=== PATIENT | female | born 1950 | race American Indian/Alaskan Native ===

== ENCOUNTER 2017-04-03 08:24 | Outpatient (CLI) | payer MEDICARE, OTHER ==
--- NOTE | 2017-04-03 09:12 | Mammography Report ---
BILATERAL MAMMOGRAM: FINDINGS: The breast tissue is heterogeneously dense, which could obscure detection of small masses (approximately 50%-75% glandular). No mass, distortion, suspicious calcification, or skin change is seen. No significant change when compared to prior exam in January 2016. CAD was utilized. IMPRESSION: Negative mammogram. There is no mammographic evidence of malignancy. RECOMMENDATION: Follow-up per ACS guidelines. BI-RADS CATEGORY: 1 = Negative ACR BI-RADS MAMMOGRAPHIC CODES: 0 = Needs additional imaging evaluation; 1 = Negative; 2 = Benign; 3 = Probably benign; 4 = Suspicious; 5 = Malignant; 6 = Known biopsy-proven malignancy COMMENT: 1. Dense breast tissue, i.e., adenosis, fibrocystic changes, etc., may obscure an underlying neoplasm. 2. Approximately 10% of cancers are not detected with mammography. 3. A negative mammography report should not delay biopsy if a clinically suspicious mass is present. COMMENT: Patient follow-up letters are generated in [employer].
== END 2017-04-03 08:25 | disposition home or self-care (01) ==
LOC: MAMMO 08:24
PROVIDERS: ATTEND Family Medicine
DX: Z12.31 Encounter for screening mammogram for malignant neoplasm of breast (principal); I10 Essential (primary) hypertension; I25.10 Atherosclerotic heart disease of native coronary artery without angina pectoris; E78.5 Hyperlipidemia, unspecified; Z87.891 Personal history of nicotine dependence
CPT/HCPCS: 77067; G0202

== ENCOUNTER 2017-07-20 07:27 | Day surgery (SDC) | payer MEDICARE, OTHER ==
[~2017-07-20 07:27] MED LIST: ANCEF/STERILE WATER 2 GM/20 ML IV NR
[2017-07-20] MEDS ORDERED: DIPRIVAN 10 MG/ML IV ONE (07:59)
[2017-07-20] MEDS ORDERED: DILAUDID ONE (07:59)
[2017-07-20] MEDS ORDERED: DECADRON ONE (08:03)
[2017-07-20] MEDS ORDERED: ZOFRAN ONE ×2 (08:03→13:36)
[2017-07-20] MEDS ORDERED: ZEMURON IV ONE (08:03)
[2017-07-20] MEDS ORDERED: XYLOCAINE MPF 2% ONE ×2 (08:03→14:19)
[2017-07-20] MEDS ORDERED: NACL BACTERIOSTATIC INFILTRATI ONE (08:29)
--- NOTE | 2017-07-20 08:30 | Anesthesia Day of Surgery ---
Anesthesia Day of Surgery - Day of Surgery Patient Examined: Yes Patient H&P Reviewed: Yes Patient is NPO: Yes Beta Blockers: Yes Cardiac Clearance: Yes
--- NOTE | 2017-07-20 08:30 | Anesthesia Consultation ---
Anesthesia Consult and Med Hx Date of service: 07/20/17 - Airway Anesthetic Teeth Evaluation: Dentures, Partials ROM Head & Neck: Inadequate Mental/Hyoid Distance: Adequate Mallampati Class: Class II Intubation Access Assessment: Probably Good - Pulmonary Exam CTA: Yes - Cardiac Exam Cardiac Exam: RRR - Pre-Operative Health Status ASA Pre-Surgery Classification: ASA3 - Pre-Anesthesia Comment Pre-Anesthesia Comments: mild decrease neck extension - Pulmonary Hx Smoking: Yes (STOPPED 1979) Hx Sleep Apnea: Yes (DX SLEEP APNEA WITH CPAP USE.) - Cardiovascular System Hx Hypertension: Yes (X 40 YRS) Hx Coronary Artery Disease: Yes (hx ND with cardiac stent x3) Hx Heart Attack/AMI: No Hx Angina: No (none presently) Hx Percutaneous Transluminal Coronary Angioplasty (PTCA): Yes - Central Nervous System Hx Back Pain: Yes (NECK PAIN DUE TO SHOULDER ISSUES) Hx Psychiatric Problems: No - Gastrointestinal Hx Gastroesophageal Reflux Disease: No - Endocrine Hx Renal Disease: No Hx Insulin Dependent Diabetes: No - Other Systems Hx Substance Use: No Hx Cancer: No
[2017-07-20] MEDS ORDERED: DILAUDID IV PRN (08:32)
[2017-07-20] MEDS ORDERED: MARCAINE 0.5% 30 ML INFILTRATI ONE (08:40)
[2017-07-20] MEDS ORDERED: SUBLIMAZE ONE (08:52)
[2017-07-20] MEDS ORDERED: ZOFRAN IV NR (09:00)
[2017-07-20] MEDS ORDERED: PERCOCET 5/325 PO PRN (09:00)
[2017-07-20] MEDS ORDERED: ZOFRAN IV PRN (09:00)
[2017-07-20] MEDS ORDERED: LACTATED RINGERS 1,000 ML IV SCH (09:00)
[2017-07-20] MEDS ORDERED: PEPCID IV NR (09:00)
[2017-07-20] MEDS: VERSED IV NR ×2 (09:05→13:57)
[2017-07-20 09:06] LABS: INR 1.02 (0.87-1.13)
[2017-07-20] MEDS ORDERED: DEPO-MEDROL ONE (09:46)
[2017-07-20] MEDS ORDERED: MARCAINE 0.25% INFILTRATI ONE (09:47)
[2017-07-20] MEDS ORDERED: ADRENALIN ONE (09:47)
[2017-07-20] MEDS ORDERED: NACL 0.9% IR ONE ×2 (10:07)
[2017-07-20] MEDS ORDERED: DEPO-MEDROL INTRA-ARTI ONE (10:07)
[2017-07-20] MEDS ORDERED: ADRENALIN IV ONE (10:07)
[2017-07-20] MEDS ORDERED: NACL 0.9% 1000 ML 1,000 ML ONE (10:33)
--- NOTE | 2017-07-20 16:11 | Procedure Note ---
Date of procedure: 07/20/17 Pre-op diagnosis: right shoulder pain Post-op diagnosis: same (80% partial-thickness tear right rotator cuff) Procedure: Arthroscopy right shoulder with subacromial decompression and repair of rotator cuff tendon with suture anchors The patient was brought to the OR after being given a scalene nerve block for postop pain management Was placed on the OR table in the supine position following induction and intubation by anesthesia the patient was placed in the left lateral decubitus position using a beanbag next the right shoulder was prepped and draped in the usual sterile manner. A timeout procedure was done to identify the patient and the correct operative site, next routine arthroscopic portals were made in the subacromial space following introduction of the arthroscope and insufflation of the subacromial space with normal saline solution examination revealed these findings the patient was noted to have significant bony impingement from the acromioclavicular joint as well as a 80% partial-thickness tear involving the supraspinatus tendon. Using a combination of the arthroscopic shaver and tissue ablator the soft tissues were debrided from the subacromial bursa as well as the overlying acromioclavicular joint care was taken to remove as much bony impingement as as we could to increase the space in the subacromial and the subacromial region C partial-thickness tear was converted to a full- thickness tear using the tissue ablator care was taken to roughen up the anatomic footprint along the greater tuberosity. Following this using the scorpion suture passer the fiber tape was passed through the supraspinatus tendon to stand was brought to the anatomic footprint and using the suture anchor device via tendon was secured in the bone with the piece worker under direct arthroscopic visualization the tendon was then tightened into position next the sutures were cut the shoulder was taken through a range of motion and the repair appeared stable next the subacromial bursa was irrigated copiously with saline solution this was followed by closure of the stab wounds Marcaine was injected along with 40 mg of Depo-Medrol routine postoperative dressings were applied the patient tolerated the procedure there were no complications she was taken to postanesthesia recovery in stable condition Anesthesia: RADHA, debora Surgeon: MILDRED CA Pipe Fitter Soft Copper: REKHA PATEL Estimated blood loss: 50-100ml Pathology: none Condition: stable Disposition: PACU
[2017-07-20 16:14] VITALS: BP 152/67
--- NOTE | 2017-07-20 16:37 | Post Anesthesia Evaluation ---
- Post Anesthesia Evaluation Patient Participated: Yes Airway Patent: Yes Stable Respiratory Function: Yes Nausea/Vomiting: No Temp > 96.8F: Yes Pain Manageable: Yes Adequeate Hydration: Yes Anesthesia Complications: No Patient on Ventilator: No Other Comments: Patient having some SOB after procedure. Oxygen sats > 92% on room air. Had a interscalene block. Reassured patient that the nerve block can cause difficulty in breathing but will go away when it starts to wear off. Gave patient the option to stay overnight but she declined along with .
== END 2017-07-20 07:28 | disposition home or self-care (01) ==
LOC: OR 07:27
PROVIDERS: ATTEND Orthopaedic Surgery
DX: S46.011A Strain of muscle(s) and tendon(s) of the rotator cuff of right shoulder, initial encounter (principal); G47.30 Sleep apnea, unspecified; I10 Essential (primary) hypertension; I25.10 Atherosclerotic heart disease of native coronary artery without angina pectoris; I25.2 Old myocardial infarction; E78.00 Pure hypercholesterolemia, unspecified; Z96.651 Presence of right artificial knee joint; Z95.828 Presence of other vascular implants and grafts; Z87.891 Personal history of nicotine dependence; Z99.89 Dependence on other enabling machines and devices; Z98.61 Coronary angioplasty status; Z88.8 Allergy status to other drugs, medicaments and biological substances; X58.XXXA Exposure to other specified factors, initial encounter; Y93.89 Activity, other specified; Y92.89 Other specified places as the place of occurrence of the external cause
CPT/HCPCS: 29826; 29827; 36415; 82962; 85610; 85730; A4217; C1713; J0171; J0690; J1030; J1100; J1170; J2250; J2405; J2704; J3010; J7030; J7120

== ENCOUNTER 2018-01-01 15:32 | Emergency (ER) | payer MEDICARE, OTHER ==
[2018-01-01 16:26] LABS: Basophils # (Auto) 0.1 K/mm3 (0.0-0.1); Basophils % (Auto) 1.2 % (0.0-1.8); Eosinophils # (Auto) 0.2 K/mm3 (0.0-0.4); Eosinophils % (Auto) 2.7 % (0.0-4.3); Hematocrit 39.4 % (30.3-42.9); Hemoglobin 12.6 gm/dl (10.1-14.3); Lymphocytes # (Auto) 1.8 K/mm3 (1.2-5.4); Lymphocytes % (Auto) 26.4 % (13.4-35.0); Mean Corpuscular HGB Conc 32 % (30-34); Mean Corpuscular Volume 76 fl (79-97); Monocytes # (Auto) 0.5 K/mm3 (0.0-0.8); Monocytes % (Auto) 6.7 % (0.0-7.3); Platelet Count 332 K/mm3 (140-440); Red Blood Count 5.16 M/mm3 (3.65-5.03); Red Cell Distribution Width 16.7 % (13.2-15.2)
[2018-01-01 16:34] LABS: INR 0.93 (0.87-1.13)
[2018-01-01 16:35] LABS: Mean Corpuscular Hemoglobin 24 pg (28-32); Partial Thromboplastin Time 35.2 Sec. (24.2-36.6)
[2018-01-01 16:42] LABS: BUN/Creatinine Ratio 27; Blood Urea Nitrogen 16 mg/dL (7-17); Calcium 9.3 mg/dL (8.4-10.2); Hemolysis Index 15
--- NOTE | 2018-01-01 18:03 | Cat Scan Report ---
FINAL REPORT EXAM: CT HEAD/BRAIN WO CON HISTORY: neuro deficits < 6hrs or sx present upon awakening TECHNIQUE: Noncontrast CT axial images of the brain. PRIORS: None. FINDINGS: No parenchymal mass, mass effect, hemorrhage, midline shift or hydrocephalus. No evidence of acute cortical infarct. No abnormal, extra-axial fluid or air collection. Very mild, patchy low density in the periventricular and subcortical white matter is nonspecific, but may relate to chronic small vessel ischemic change. Probable old lacunar infarct changes in the right basal ganglia. Osseous calvarium grossly intact. IMPRESSION: 1. Chronic ischemic changes suspected. Please note that MRI is a far more sensitive modality in the evaluation of acute cerebral ischemia, and followup may be warranted. 2. No other acute intracranial findings.
--- NOTE | 2018-01-01 22:35 | Emergency Department Report ---
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 Past medical history includes hypertension and coronary artery disease. She presents to the ER with a complaint of bilateral facial numbness. It started at 12:00. It lasted for a few hours. It is now resolved. It is painless. It does not radiate anywhere. He does not have exacerbating or relieving factors. The patient also complained of left arm cramping, starting from the mid forearm , going to the elbow, and ending in the mid bicep. The patient specifically denies complete left arm numbness, and also denies left arm heaviness. This has also resolved. The patient denies headache, neck pain, chest pain, abdominal pain, shortness of breath, cough, urinary symptoms. Location: other Presenting Symptoms: Absent: Weak/Paralyzed One Side, Sudden, Severe Headache, Blurred/Loss of Vision, Facial Droop/Numbness, Unable to Speak Clearly, Altered Mental Status History of same: No Place: work Severity: mild Quality: numb Improves With: none Worsens With: none On Anticoagulants: Yes Associated Symptoms: denies: confusion, chest pain, cough, diaphoresis, fever/ chills, headaches, loss of appetite, malise, nausea/vomiting, vertigo, seizures , shortness of breath, syncope, weakness - Related Data Home Medications: Home Medications Medication Instructions Recorded Confirmed Last Taken Atorvastatin (Nf) [Lipitor (Nf)] 20 mg PO DAILY 12/03/13 07/20/17 07/19/17 Cholecalciferol (Vitamin D3) 1 each PO DAILY 12/03/13 07/17/17 02/04/15 08:00 [Vitamin D3] Multivitamin/Iron/Folic Acid 1 each PO DAILY 12/03/13 07/17/17 02/04/15 08:00 [Multi-Day Plus Iron Tablet] Flaxseed [Flaxseed Oil] 1,000 mg PO QDAY 01/29/15 07/17/17 02/04/15 09:00 Glucosam/Chondr/Collagn/Hyalur 1 each PO QDAY 01/29/15 07/17/17 02/04/15 09:00 [Glucosamine & Chondroitin Cap] Metoprolol Xl [Metoprolol 50 mg PO BID 01/29/15 07/20/17 07/20/17 SUCCINATE ER TAB] NIFEdipine [NIFEdipine ER] 60 mg PO QDAY 01/29/15 07/20/17 07/20/17 Vitamin B Complex Vit C No.4 150 mg PO QDAY 01/29/15 07/17/17 02/04/15 08:00 [Super B Complex] L. Acidophilus/Pectin, Ho[place] 1 each PO DAILY 07/17/17 07/17/17 Unknown [Acidophilus Probiotic Capsule] Multivit-Min/FA/Lycopen/Lutein 1 each PO DAILY 07/17/17 07/17/17 Unknown [Centrum Silver Tablet] Prasugrel HCl [Effient] 10 mg PO DAILY 07/17/17 07/20/17 07/17/17 Propylene Glycol [Systane Balance] 1 drop OP DAILY 07/17/17 07/17/17 Unknown Calhan Oil/[place]-3 Fatty Acids 1 each PO DAILY 07/17/17 07/17/17 Unknown [Calhan Oil 1,000 mg Softgel] Previous Rx's Medication Instructions Recorded Last Taken Type Aspirin EC [Aspirin Enteric Coated 81 mg PO QDAY #30 tablet. 12/03/13 Rx TAB] oxyCODONE [Roxicodone TAB] 5 mg PO Q6HR PRN #30 tablet 07/20/17 Unknown Rx Allergies/Adverse Reactions: Allergies Allergy/AdvReac Type Severity Reaction Status Date / Time adhesive AdvReac Severe STEWART SKIN Verified 12/03/13 07:01 ED Review of Systems ROS: Stated complaint: TINGLING IN FACE Other details as noted in HPI Comment: All other systems reviewed and negative ED Past Medical Hx - Past Medical History Hx Hypertension: Yes (X 40 YRS) Hx Heart Attack/AMI: No Hx Diabetes: Yes ("BOARDERLINE" NO MEDS) Hx GERD: Yes (ON MEDS FOR AWHILE , RESOLVED NOW) Hx Renal Disease: No - Surgical History Hx Coronary Stent: Yes (X 3( )) - Social History Smoking Status: Former Smoker Substance Use Type: None - Medications Home Medications: Home Medications Medication Instructions Recorded Confirmed Last Taken Type Aspirin EC [Aspirin Enteric Coated 81 mg PO QDAY #30 tablet. 12/03/1307/16/17 Rx TAB] Atorvastatin (Nf) [Lipitor (Nf)] 20 mg PO DAILY 12/03/13 07/20/17 07/19/17 History Cholecalciferol (Vitamin D3) 1 each PO DAILY 12/03/13 07/17/17 02/04/15 08:00 History [Vitamin D3] Multivitamin/Iron/Folic Acid 1 each PO DAILY 12/03/13 07/17/17 02/04/15 08:00 History [Multi-Day Plus Iron Tablet] Flaxseed [Flaxseed Oil] 1,000 mg PO QDAY 01/29/15 07/17/17 02/04/15 09:00 History Glucosam/Chondr/Collagn/Hyalur 1 each PO QDAY 01/29/15 07/17/17 02/04/15 09:00 History [Glucosamine & Chondroitin Cap] Metoprolol Xl [Metoprolol 50 mg PO BID 01/29/15 07/20/17 07/20/17 History SUCCINATE ER TAB] NIFEdipine [NIFEdipine ER] 60 mg PO QDAY 01/29/15 07/20/17 07/20/17 History Vitamin B Complex Vit C No.4 150 mg PO QDAY 01/29/15 07/17/17 02/04/15 08:00 History [Super B Complex] L. Acidophilus/Pectin, [place] 1 each PO DAILY 07/17/17 07/17/17 Unknown History [Acidophilus Probiotic Capsule] Multivit-Min/FA/Lycopen/Lutein 1 each PO DAILY 07/17/17 07/17/17 Unknown History [Centrum Silver Tablet] Prasugrel HCl [Effient] 10 mg PO DAILY 07/17/17 07/20/17 07/17/17 History Propylene Glycol [Systane Balance] 1 drop OP DAILY 07/17/17 07/17/17 Unknown History Calhan Oil/[place]-3 Fatty Acids 1 each PO DAILY 07/17/17 07/17/17 Unknown History [Calhan Oil 1,000 mg Softgel] oxyCODONE [Roxicodone TAB] 5 mg PO Q6HR PRN #30 tablet 07/20/17 Unknown Rx ED Neuro Physical Exam - General Limitations: No Limitations General appearance: alert, in no apparent distress Suspected Stroke: No - Head Head exam: Present: atraumatic, normocephalic - Eye Eye exam: Present: normal appearance, PERRL, EOMI, other (visual acuity intact to finger counting, color perception, reading at a close distance). Absent: nystagmus - ENT ENT exam: Present: normal exam, normal orophraynx, mucous membranes moist, normal external ear exam - Neck Neck exam: Present: normal inspection, full ROM - Respiratory Respiratory exam: Present: normal lung sounds bilaterally. Absent: respiratory distress - Cardiovascular Cardiovascular Exam: Present: regular rate, normal rhythm, normal heart sounds. Absent: systolic murmur, diastolic murmur, rubs, gallop - GI/Abdominal GI/Abdominal exam: Present: soft, normal bowel sounds. Absent: distended, tenderness, guarding, rebound, rigid, pulsatile mass - Extremities Exam Extremities exam: Present: normal inspection, full ROM, normal capillary refill. Absent: tenderness, joint swelling, calf tenderness - Back Exam Back exam: Present: normal inspection, full ROM. Absent: tenderness, CVA tenderness (R), paraspinal tenderness, vertebral tenderness - Neurological Exam Neurological exam: Present: alert, oriented X3, CN II-XII intact, normal gait, other (Extraocular movements intact. Tongue midline. No facial droop. Facial sensation intact to light touch in the V1, V2, V3 distribution bilaterally. 5 and 5 strength in 4 extremities.. Sensation is intact to light touch in 4 extremities.). Absent: motor sensory deficit - NIHSS Assessment Interval: Baseline 1a. Level of Consciousness: alert 1b. LOC Questions: answers correctly 1c. LOC Commands: performs tasks correctly 2. Best Gaze: normal 3. Visual: no visual loss 4. Facial Palsy: normal symmetrical movement 5b. Motor Arm Right: no drift 5a. Motor Arm Left: no drift 6a. Motor Leg Left: no drift 6b. Motor Leg Right: no drift 7. Limb Ataxia: absent 8. Sensory: normal 9. Best Language: no aphasia 10. Dysarthria: normal 11. Extinction/Inattention: no abnormality Total Score: 0 Stroke Severity: No Stroke Symptoms - Psychiatric Psychiatric exam: Present: normal affect, normal mood - Skin Skin exam: Present: warm, dry, intact, normal color. Absent: rash ED Course Vital Signs 01/01/18 01/01/18 15:39 22:27 Temperature 98 F 98.1 F Pulse Rate 94 H 82 Respiratory 16 12 Rate Blood Pressure 191/80 Blood Pressure 155/77 [Right] O2 Sat by Pulse 99 100 Oximetry - Reevaluation(s) Reevaluation #1: 01/01/18 22:33 Cranial nerves within normal limits as directed, with the exception of decreased hearing in the left ear which is chronic as per patient. Differential diagnosis, including not limited to: Multiple sclerosis, peripheral neuropathy, panic attack, anxiety, conversion, electrolyte derangement Assessment and plan: 67-year-old female with complaint of painless bilateral facial numbness, and left mid arm cramping. GCS of 15, NIH score of 0, symptoms not anatomically consistent or suggestive of stroke or transient ischemic attack. Laboratory studies unremarkable, not having chest pain, EKG unremarkable, vital signs appreciated, patient is counseled to continue outpatient medications, and to follow up with outpatient primary care and/or neurology. Elevated blood pressure is appreciated, please see the [employer] clinical policy on asymptomatic elevated blood pressure/hypertension. Patient is suitable to follow up with outpatient primary care doctor/urology specialist for her nonspecific symptoms. 01/01/18 22:40 - Lab Data Result diagrams: 01/01/18 15:58 01/01/18 15:58 Lab Results 01/01/18 01/01/18 01/01/18 Range/Units 15:56 15:58 15:58 WBC 6.8 (4.5-11.0) K/mm3 RBC 5.16 H (3.65-5.03) M/mm3 Hgb 12.6 (10.1-14.3) gm/dl Hct 39.4 (30.3-42.9) % MCV 76 L (79-97) fl MCH 24 L (28-32) pg MCHC 32 (30-34) % RDW 16.7 H (13.2-15.2) % Plt Count 332 (140-440) K/mm3 Lymph % (Auto) 26.4 (13.4-35.0) % [place] % (Auto) 6.7 (0.0-7.3) % Eos % (Auto) 2.7 (0.0-4.3) % Baso % (Auto) 1.2 (0.0-1.8) % Lymph # 1.8 (1.2-5.4) K/mm3 [place] # 0.5 (0.0-0.8) K/mm3 Eos # 0.2 (0.0-0.4) K/mm3 Baso # 0.1 (0.0-0.1) K/mm3 Seg Neutrophils % 63.0 (40.0-70.0) % Seg Neutrophils # 4.3 (1.8-7.7) K/mm3 PT 12.9 (12.2-14.9) Sec. INR 0.93 (0.87-1.13) APTT 35.2 (24.2-36.6) Sec. Thrombin Time (15.1-19.6) Sec. Sodium (137-145) mmol/L Potassium (3.6-5.0) mmol/L Chloride (98-107) mmol/L Carbon Dioxide (22-30) mmol/L Anion Gap mmol/L BUN (7-17) mg/dL Creatinine (0.7-1.2) mg/dL Estimated GFR ml/min BUN/Creatinine Ratio % Glucose (65-100) mg/dL POC Glucose 135 H (70-105) Calcium (8.4-10.2) mg/dL Troponin T (0.00-0.029) ng/mL 01/01/18 01/01/18 Range/Units 15:58 15:58 WBC (4.5-11.0) K/mm3 RBC (3.65-5.03) M/mm3 Hgb (10.1-14.3) gm/dl Hct (30.3-42.9) % MCV (79-97) fl MCH (28-32) pg MCHC (30-34) % RDW (13.2-15.2) % Plt Count (140-440) K/mm3 Lymph % (Auto) (13.4-35.0) % [place] % (Auto) (0.0-7.3) % Eos % (Auto) (0.0-4.3) % Baso % (Auto) (0.0-1.8) % Lymph # (1.2-5.4) K/mm3 [place] # (0.0-0.8) K/mm3 Eos # (0.0-0.4) K/mm3 Baso # (0.0-0.1) K/mm3 Seg Neutrophils % (40.0-70.0) % Seg Neutrophils # (1.8-7.7) K/mm3 PT (12.2-14.9) Sec. INR (0.87-1.13) APTT (24.2-36.6) Sec. Thrombin Time 15.8 (15.1-19.6) Sec. Sodium 139 (137-145) mmol/L Potassium 3.7 (3.6-5.0) mmol/L Chloride 99.3 (98-107) mmol/L Carbon Dioxide 25 (22-30) mmol/L Anion Gap 18 mmol/L BUN 16 (7-17) mg/dL Creatinine 0.6 L (0.7-1.2) mg/dL Estimated GFR > 60 ml/min BUN/Creatinine Ratio 27 % Glucose 139 H (65-100) mg/dL POC Glucose (70-105) Calcium 9.3 (8.4-10.2) mg/dL Troponin T < 0.010 (0.00-0.029) ng/mL - EKG Data -: EKG Interpreted by [facility] EKG shows normal: sinus rhythm, axis, intervals, QRS complexes, ST-T waves Rate: normal Interpretation: normal EKG - Radiology Data Radiology results: report reviewed, image reviewed Print Report Referring Physician: DORA MOSHER Patient Name: TRINITY LIMA Date of : 1950 Sex: Female Report Date: 2018-01-01 Report Status: [place] [address] Cat Scan Report Signed Patient: TRINITY LIMA MR#: [id number] : 1950 Acct:[id number] Age/Sex: 67 / F ADM Date: 01/01/18 Loc: ED Attending Dr: Ordering Physician: DORA MOSHER MD Date of Service: 01/01/18 Procedure(s): CT head/brain wo con Accession Number(s): [id number] cc: DORA MOSHER MD FINAL REPORT EXAM: CT HEAD/BRAIN WO CON HISTORY: neuro deficits lt; 6hrs or sx present upon awakening TECHNIQUE: Noncontrast CT axial images of the brain. PRIORS: None. FINDINGS: No parenchymal mass, mass effect, hemorrhage, midline shift or hydrocephalus. No evidence of acute cortical infarct. No abnormal, extra-axial fluid or air collection. Very mild, patchy low density in the periventricular and subcortical white matter is nonspecific, but may relate to chronic small vessel ischemic change. Probable old lacunar infarct changes in the right basal ganglia. Osseous calvarium grossly intact. IMPRESSION: 1. Chronic ischemic changes suspected. Please note that MRI is a far more sensitive modality in the evaluation of acute cerebral ischemia, and followup may be warranted. 2. No other acute intracranial findings. Transcribed By: [facility] Dictated By: RAY TAYLOR MD Electronically Authenticated By: RAY TAYLOR MD Signed Date/Time: 01/01/18 2364 - Core Measures Measure Exclusions: not indicated - Thrombolytic Inclusion/Exclusion Thrombolytic Contraindications: Rapidily Improving s/s Critical care attestation.: If time is entered above; I have spent that time in minutes in the direct care of this critically ill patient, excluding procedure time. ED Disposition Clinical Impression: Facial numbness Disposition: DC-01 TO HOME OR SELFCARE Is pt being admited?: No Does the pt Need Aspirin: No Condition: Good Instructions: Paresthesia (ED) Additional Instructions: Continue current outpatient medications. Follow-up with her primary care doctor or neurology specialist within the next week. Please note that blood pressure was elevated. This should be followed up as directed. Long-term complications of hypertension and elevated blood pressure include stroke, heart attack, disability, paralysis, loss of quality of life. Return to the ER right away with new pain, worsened pain, migration of pain, fevers, chills, lethargy, irritability, projectile vomiting, change in mental status, confusion, inability to tolerate liquid feeds. Referrals: PRIMARY LARRY, [Primary Care Provider] - 3-5 Days SHU BIRMINGHAM MD [Referring] - 3-5 Days VANDANA ARREOLA MD [Staff Physician] - 3-5 Days MICHELLE JONES MD [Staff Physician] - 3-5 Days
[2018-01-01 23:26] VITALS: BP 151/74
== END 2018-01-01 23:26 | disposition home or self-care (01) ==
LOC: ED 15:32
DX: R20.0 Anesthesia of skin (principal); I10 Essential (primary) hypertension; E11.9 Type 2 diabetes mellitus without complications; K21.9 Gastro-esophageal reflux disease without esophagitis; Z87.891 Personal history of nicotine dependence; Z91.048 Other nonmedicinal substance allergy status
CPT/HCPCS: 36415; 70450; 80048; 82962; 84484; 85025; 85610; 85670; 85730; 93005; 93010; 99284

== ENCOUNTER 2018-02-12 09:39 | Emergency (ER) | payer MEDICARE, OTHER ==
--- NOTE | 2018-02-12 12:53 | Emergency Department Report ---
ED General Adult HPI - General Chief complaint: Extremity Injury, Lower Stated complaint: POSS CLOTS IN LEGS Time Seen by Provider: 02/12/18 12:44 Source: patient Mode of arrival: Ambulatory Limitations: No Limitations - History of Present Illness Initial comments: Patient is 67 years old female with history of coronary artery disease. Patient presented to the ER complaining of bilateral lower extremity swelling, redness and warm and tender to touch. Patient stated that symptoms started after she finished our [employer] shopping. Patient denied any chest pain or shortness of breath. No fever, nausea or vomiting. - Related Data Home Medications Medication Instructions Recorded Confirmed Last Taken Atorvastatin (Nf) [Lipitor (Nf)] 20 mg PO DAILY 12/03/13 07/20/17 07/19/17 Cholecalciferol (Vitamin D3) 1 each PO DAILY 12/03/13 07/17/17 02/04/15 08:00 [Vitamin D3] Multivitamin/Iron/Folic Acid 1 each PO DAILY 12/03/13 07/17/17 02/04/15 08:00 [Multi-Day Plus Iron Tablet] Flaxseed [Flaxseed Oil] 1,000 mg PO QDAY 01/29/15 07/17/17 02/04/15 09:00 Glucosam/Chondr/Collagn/Hyalur 1 each PO QDAY 01/29/15 07/17/17 02/04/15 09:00 [Glucosamine & Chondroitin Cap] Metoprolol Xl [Metoprolol 50 mg PO BID 01/29/15 07/20/17 07/20/17 SUCCINATE ER TAB] NIFEdipine [NIFEdipine ER] 60 mg PO QDAY 01/29/15 07/20/17 07/20/17 Vitamin B Complex Vit C No.4 150 mg PO QDAY 01/29/15 07/17/17 02/04/15 08:00 [Super B Complex] L. Acidophilus/Pectin, [place] 1 each PO DAILY 07/17/17 07/17/17 Unknown [Acidophilus Probiotic Capsule] Multivit-Min/FA/Lycopen/Lutein 1 each PO DAILY 07/17/17 07/17/17 Unknown [Centrum Silver Tablet] Prasugrel HCl [Effient] 10 mg PO DAILY 07/17/17 07/20/17 07/17/17 Propylene Glycol [Systane Balance] 1 drop OP DAILY 07/17/17 07/17/17 Unknown [place] Oil/Aurora-3 Fatty Acids 1 each PO DAILY 07/17/17 07/17/17 Unknown [[place] Oil 1,000 mg Softgel] Previous Rx's Medication Instructions Recorded Last Taken Type Aspirin EC [Aspirin Enteric Coated 81 mg PO QDAY #30 tablet. 12/03/13 Rx TAB] oxyCODONE [Roxicodone TAB] 5 mg PO Q6HR PRN #30 tablet 07/20/17 Unknown Rx Allergies Allergy/AdvReac Type Severity Reaction Status Date / Time adhesive AdvReac Severe STEWART SKIN Verified 12/03/13 07:01 ED Review of Systems ROS: Stated complaint: POSS CLOTS IN LEGS Other details as noted in HPI Comment: All other systems reviewed and negative Constitutional: denies: chills, fever Respiratory: denies: cough, orthopnea, shortness of breath, SOB with exertion, SOB at rest, wheezing Gastrointestinal: denies: abdominal pain, nausea, vomiting, diarrhea, constipation, hematemesis, melena, hematochezia Genitourinary: denies: urgency, dysuria, frequency, hematuria, discharge, abnormal menses, dyspareunia Skin: denies: rash ED Past Medical Hx - Past Medical History Previous Medical History?: Yes Hx Hypertension: Yes (X 40 YRS) Hx Heart Attack/AMI: No Hx Diabetes: Yes ("BOARDERLINE" NO MEDS) Hx GERD: Yes (ON MEDS FOR AWHILE , RESOLVED NOW) Hx Renal Disease: No - Surgical History Past Surgical History?: Yes Hx Coronary Stent: Yes (X 3( )) - Social History Smoking Status: Former Smoker Substance Use Type: Prescribed - Medications Home Medications: Home Medications Medication Instructions Recorded Confirmed Last Taken Type Aspirin EC [Aspirin Enteric Coated 81 mg PO QDAY #30 tablet. 12/03/1307/16/17 Rx TAB] Atorvastatin (Nf) [Lipitor (Nf)] 20 mg PO DAILY 12/03/13 07/20/17 07/19/17 History Cholecalciferol (Vitamin D3) 1 each PO DAILY 12/03/13 07/17/17 02/04/15 08:00 History [Vitamin D3] Multivitamin/Iron/Folic Acid 1 each PO DAILY 12/03/13 07/17/17 02/04/15 08:00 History [Multi-Day Plus Iron Tablet] Flaxseed [Flaxseed Oil] 1,000 mg PO QDAY 01/29/15 07/17/17 02/04/15 09:00 History Glucosam/Chondr/Collagn/Hyalur 1 each PO QDAY 01/29/15 07/17/17 02/04/15 09:00 History [Glucosamine & Chondroitin Cap] Metoprolol Xl [Metoprolol 50 mg PO BID 01/29/15 07/20/17 07/20/17 History SUCCINATE ER TAB] NIFEdipine [NIFEdipine ER] 60 mg PO QDAY 01/29/15 07/20/17 07/20/17 History Vitamin B Complex Vit C No.4 150 mg PO QDAY 01/29/15 07/17/17 02/04/15 08:00 History [Super B Complex] L. Acidophilus/Pectin, [place] 1 each PO DAILY 07/17/17 07/17/17 Unknown History [Acidophilus Probiotic Capsule] Multivit-Min/FA/Lycopen/Lutein 1 each PO DAILY 07/17/17 07/17/17 Unknown History [Centrum Silver Tablet] Prasugrel HCl [Effient] 10 mg PO DAILY 07/17/17 07/20/17 07/17/17 History Propylene Glycol [Systane Balance] 1 drop OP DAILY 07/17/17 07/17/17 Unknown History [place] Oil/Aurora-3 Fatty Acids 1 each PO DAILY 07/17/17 07/17/17 Unknown History [[place] Oil 1,000 mg Softgel] oxyCODONE [Roxicodone TAB] 5 mg PO Q6HR PRN #30 tablet 07/20/17 Unknown Rx ED Physical Exam - General Limitations: No Limitations General appearance: alert, in no apparent distress - Head Head exam: Present: atraumatic, normocephalic, normal inspection - Eye Eye exam: Present: normal appearance - ENT ENT exam: Present: normal exam, normal orophraynx, mucous membranes moist - Neck Neck exam: Present: normal inspection, full ROM. Absent: tenderness, meningismus, lymphadenopathy, thyromegaly - Respiratory Respiratory exam: Present: normal lung sounds bilaterally. Absent: respiratory distress, wheezes, rales, rhonchi, stridor, chest wall tenderness, accessory muscle use, decreased breath sounds, prolonged expiratory - Cardiovascular Cardiovascular Exam: Present: regular rate, normal rhythm, normal heart sounds - GI/Abdominal GI/Abdominal exam: Present: soft, normal bowel sounds. Absent: distended, tenderness, guarding, rebound, rigid, organomegaly, mass, bruit, pulsatile mass , hernia - Extremities Exam Extremities exam: Present: full ROM, tenderness, normal capillary refill, pedal edema, calf tenderness, other (bilateral lower extremity redness, warm and tender to touch.) - Back Exam Back exam: Present: normal inspection, full ROM. Absent: tenderness, CVA tenderness (R), CVA tenderness (L), muscle spasm, paraspinal tenderness, vertebral tenderness - Neurological Exam Neurological exam: Present: alert, oriented X3, CN II-XII intact, normal gait, reflexes normal - Skin Skin exam: Present: warm, intact, erythema ED Course Vital Signs 02/12/18 10:02 Temperature 98.6 F Pulse Rate 78 Respiratory 20 Rate Blood Pressure 114/73 O2 Sat by Pulse 96 Oximetry ED Medical Decision Making - Lab Data Result diagrams: 02/12/18 12:53 02/12/18 12:53 - Radiology Data Radiology results: report reviewed Bilateral lower extremity Doppler is negative for DVTs. - Medical Decision Making Patient workup is negative for infection or DVT. This is most likely venous stasis. I will prescribe the patient hydrocortisone cream. I also advised the patient to follow-up with her primary care physician and to return to the ER if she saw having any shortness of breath or chest pain. Critical care attestation.: If time is entered above; I have spent that time in minutes in the direct care of this critically ill patient, excluding procedure time. ED Disposition Clinical Impression: Venous stasis dermatitis, Swelling of both lower extremities Disposition: - TO HOME OR SELFCARE Is pt being admited?: No Condition: Stable Instructions: Stasis Dermatitis (ED) Referrals: REKHA ALEMAN JR, MD [Primary Care Provider] - 3-5 Days
[2018-02-12 13:18] LABS: Basophils % (Auto) 0.6 % (0.0-1.8); Eosinophils % (Auto) 0.7 % (0.0-4.3); Hematocrit 36.7 % (30.3-42.9); Hemoglobin 11.6 gm/dl (10.1-14.3); Lymphocytes # (Auto) 0.9 K/mm3 (1.2-5.4); Lymphocytes % (Auto) 18.1 % (13.4-35.0); Mean Corpuscular HGB Conc 32 % (30-34); Mean Corpuscular Volume 75 fl (79-97); Monocytes # (Auto) 0.3 K/mm3 (0.0-0.8); Monocytes % (Auto) 6.9 % (0.0-7.3); Platelet Count 308 K/mm3 (140-440); Red Blood Count 4.87 M/mm3 (3.65-5.03); Red Cell Distribution Width 16.3 % (13.2-15.2)
[2018-02-12 13:27] LABS: BUN/Creatinine Ratio 27; Blood Urea Nitrogen 24 mg/dL (7-17); Calcium 8.8 mg/dL (8.4-10.2); Hemolysis Index 8
[2018-02-12 13:33] LABS: INR 0.95 (0.87-1.13); Mean Corpuscular Hemoglobin 24 pg (28-32)
[2018-02-12 13:34] LABS: Partial Thromboplastin Time 36.4 Sec. (24.2-36.6)
[2018-02-12 17:44] VITALS: BP 128/89
== END 2018-02-12 17:01 | disposition home or self-care (01) ==
LOC: ED 09:39
DX: I87.2 Venous insufficiency (chronic) (peripheral) (principal); M79.89 Other specified soft tissue disorders
CPT/HCPCS: 36415; 80048; 85025; 85379; 85610; 85730; 93970

== ENCOUNTER 2018-04-04 08:38 | Outpatient (CLI) | payer MEDICARE, OTHER ==
--- NOTE | 2018-04-04 10:55 | Mammography Report ---
Screening mammogram: Routine views demonstrate a heterogeneously dense symmetrically distributed fibroglandular pattern. In the left CC view there is an area of focal asymmetry that is not identified on prior exams dating back to 2013. The lateral projections remain essentially unchanged. CAD used. Impression: Left asymmetry. Recommendation: Additional compression imaging of the left breast in CC projection. Lateral views and ultrasound if needed. BI-RADS CATEGORY: 0 = Needs additional imaging evaluation ACR BI-RADS MAMMOGRAPHIC CODES: 0 = Needs additional imaging evaluation; 1 = Negative; 2 = Benign; 3 = Probably benign; 4 = Suspicious; 5 = Malignant; 6 = Known biopsy-proven malignancy COMMENT: 1. Dense breast tissue, i.e., adenosis, fibrocystic changes, etc., may obscure an underlying neoplasm. 2. Approximately 10% of cancers are not detected with mammography. 3. A negative mammography report should not delay biopsy if a clinically suspicious mass is present.
--- NOTE | 2018-04-04 10:57 | Mammography Report ---
BONE DENSITY STUDY: Postmenopausal osteoporosis screening. DEFINITIONS: BMD = Bone Mineral Density T-score = BMD related to mean peak bone mass of young adult (mean expressed in Standard Deviation) Z-score = Age matched BMD expressed in SD World Health Organization (WHO) Diagnostic Criteria Normal T-score > -1 SD Osteopenia T-score between -1 and -2.4 SD Osteoporosis T-score -2.5 SD or below FINDINGS: The weighted average BMD of lumbar spine L1-L4 is 1.279 with a T-score of 2.1. The weighted average BMD of the left hip is 1.093 with a T-score of 1.2. IMPRESSION: The patient's average T-score is diagnostic for normal bone density and low relative risk for fracture. NOTE: BMD is not the only risk factor for fracture; also consider factors such as the patient's age, risk of falling, previous osteoporotic fracture, family history of osteoporotic fractures, current smoker, and low body weight. Braun's triangle is a region of interest in femur, predominantly of trabecular bone. It is not a true anatomic site, and ISCD does not recommend its use clinically.
== END 2018-04-04 08:39 | disposition home or self-care (01) ==
LOC: MAMMO 08:38
PROVIDERS: ATTEND Family Medicine
DX: Z12.31 Encounter for screening mammogram for malignant neoplasm of breast (principal); Z78.0 Asymptomatic menopausal state; F17.210 Nicotine dependence, cigarettes, uncomplicated; Z91.048 Other nonmedicinal substance allergy status
CPT/HCPCS: 77067; 77080

== ENCOUNTER 2018-05-01 08:30 | Outpatient (CLI) | payer MEDICARE, OTHER ==
--- NOTE | 2018-05-01 09:25 | Mammography Report ---
LEFT DIGITAL DIAGNOSTIC MAMMOGRAM : 05/01/18 08:30:00 CLINICAL: Recalled for asymmetry. COMPARISON:04/04/18 screening FINDINGS: Additional mammographic views were performed and are negative. IMPRESSION: Negative Mammogram. BI-RADS CATEGORY: 1 -- Negative RECOMMENDATION: Routine mammographic screening in one year. ACR BI-RADS MAMMOGRAPHIC CODES: 0 = Needs additional imaging evaluation; 1 = Negative; 2 = Benign; 3 = Probably benign; 4 = Suspicious; 5 = Malignant; 6 = Known biopsy-proven malignancy COMMENT: 1. Dense breast tissue, i.e., adenosis, fibrocystic changes, etc., may obscure an underlying neoplasm. 2. Approximately 10% of cancers are not detected with mammography. 3. A negative mammography report should not delay biopsy if a clinically suspicious mass is present. COMMENT: Patient follow-up letters are generated via our [employer] application.
== END 2018-05-01 08:31 | disposition home or self-care (01) ==
LOC: MAMMO 08:30
PROVIDERS: ATTEND Family Medicine
DX: R92.8 Other abnormal and inconclusive findings on diagnostic imaging of breast (principal); I25.10 Atherosclerotic heart disease of native coronary artery without angina pectoris; E78.00 Pure hypercholesterolemia, unspecified; I10 Essential (primary) hypertension; K21.9 Gastro-esophageal reflux disease without esophagitis; Z91.048 Other nonmedicinal substance allergy status; Z90.710 Acquired absence of both cervix and uterus; Z87.891 Personal history of nicotine dependence
CPT/HCPCS: 77066

== ENCOUNTER 2018-11-16 10:23 | Outpatient (CLI) | payer MEDICARE, OTHER ==
--- NOTE | 2018-11-16 16:04 | XRay Report ---
XRAY KNEES STANDING AP BILATERAL: 11/16/18 10:23:00 CLINICAL: Osteoarthritis and pain. FINDINGS: Right: Status post total joint replacement with normal appearance of the prosthesis No fracture or dislocation. Normal soft tissues. Left: Moderate osteoarthritis involving the medial and lateral joints. No fracture or dislocation. Normal soft tissues. IMPRESSION: 1. Normal right knee status post total joint replacement. 2. Moderate osteoarthritis left knee.
--- NOTE | 2018-11-16 16:12 | XRay Report ---
XRAY LUMBAR SPINE WITH OBLIQUES 5 VIEWS: 11/16/18 10:23:00 CLINICAL: Back pain. FINDINGS: Normal vertebral body height and alignment. L5-S1 disc space narrowing and small anterior osteophytes. The rest of the disc spaces are normal. Multilevel bilateral facet joint sclerosis, worse from L2-3 through L5-S1. The right neural foramina are well demonstrated and normal. The left neural foramina are normal except at L3-4 and L4-5. No fracture. Extensive calcification of the abdominal aorta. IMPRESSION: Multilevel facet joint arthropathy with suggestion of neural foraminal stenosis on the left at L3-4 and L4-5. L5-S1 degenerative disc disease.
--- NOTE | 2018-11-16 20:28 | Vascular Lab Report ---
PROCEDURE: VL VENOUS DUPLEX LE BILAT HISTORY: INFLAMMATION AND SWELLING, CALF PAIN LOWE LEG FINDINGS: Real-time ultrasound of the right leg and left leg was performed using grayscale and color Doppler im ages. These images demonstrate no evidence of deep venous thrombus in the right or left common femoral vein , superficial femoral vein, popliteal vein or posterior tibial vein. There is a left popliteal cyst 2.3 x 1.2 cm. IMPRESSION: No DVT in either leg Left popliteal cyst This document is electronically signed by Gentry Gonzalez MD., November 16 2018 08:26:44 PM ET
== END 2018-11-16 10:24 | disposition home or self-care (01) ==
LOC: VAS 10:23
PROVIDERS: ATTEND Family Medicine
DX: M51.37 Other intervertebral disc degeneration, lumbosacral region (principal); M48.07 Spinal stenosis, lumbosacral region; M17.12 Unilateral primary osteoarthritis, left knee; M71.22 Synovial cyst of popliteal space [Baker], left knee; E78.00 Pure hypercholesterolemia, unspecified; E78.5 Hyperlipidemia, unspecified; K21.9 Gastro-esophageal reflux disease without esophagitis; Z90.710 Acquired absence of both cervix and uterus; Z87.891 Personal history of nicotine dependence
CPT/HCPCS: 72110; 73565; 93970

== ENCOUNTER 2019-05-09 07:32 | Outpatient (CLI) | payer MEDICARE, OTHER ==
--- NOTE | 2019-05-09 08:15 | Mammography Report ---
BILATERAL DIGITAL SCREENING MAMMOGRAM WITH CAD INDICATION: Routine screening mammography. TECHNIQUE: Digital bilateral 2D mammography was obtained in the craniocaudal and mediolateral obliq ue projections. This examination was interpreted with the benefit of Computer-Aided Detection analysi s. COMPARISON: 04/04/2018 FINDINGS: Breast Density: The breasts are heterogeneously dense, which may obscure small masses. No mass, architectural distortion or suspicious calcifications. IMPRESSION:No mammographic evidence of malignancy. BI-RADS Category 1: Negative. No mammographic evidence of malignancy. Recommend routine screening m ammography in one year. A "normal" or negative report should not discourage follow up or biopsy of a clinically significant f inding. A written summary of these findings will be mailed to the patient. The patient will be entered into a mammography reporting system which will generate a reminder letter for the patient's next appointmen t at the appropriate interval. The [employer] recommends yearly mammograms starting at age 40 and continuing as l arsenio as a woman is in good health. Breast MRI is recommended for women with an approximate 20-25% or greater lifetime risk of breast cancer, including women with a strong family history of breast or ova lolis cancer or who have been treated for Hodgkin's disease. Signer Name: Valdemar Hill MD Signed: 05/09/2019 8:11 AM Workstation Name: [id number]
== END 2019-05-09 07:33 | disposition home or self-care (01) ==
LOC: MAMMO 07:32
PROVIDERS: ATTEND Family Medicine
DX: Z12.31 Encounter for screening mammogram for malignant neoplasm of breast (principal); E78.00 Pure hypercholesterolemia, unspecified; I10 Essential (primary) hypertension; K21.9 Gastro-esophageal reflux disease without esophagitis; Z90.710 Acquired absence of both cervix and uterus
CPT/HCPCS: 77067

== ENCOUNTER 2019-11-10 20:42 | Emergency (ER) | payer MEDICARE, OTHER ==
--- NOTE | 2019-11-10 21:04 | Event Note ---
ED Screening Note Date of service: 11/10/19 Time: 21:03 ED Screening Note: Pt c/o of abnormal headache x 1 week states she is on blood thinners denies head trauma or fall This initial assessment/diagnostic orders/clinical plan/treatment(s) is/are subject to change based on patients health status, clinical progression and re- assessment by fellow clinical providers in the ED. Further treatment and workup at subsequent clinical providers discretion. Patient/guardian urged not to elope from the ED as their condition may be serious if not clinically assessed and managed. Initial orders include: CT head
[2019-11-10 21:48] LABS: Basophils # (Auto) 0.1 K/mm3 (0.0-0.1); Basophils % (Auto) 1.4 % (0.0-1.8); Eosinophils # (Auto) 0.1 K/mm3 (0.0-0.4); Eosinophils % (Auto) 1.8 % (0.0-4.3); Hematocrit 41.7 % (30.3-42.9); Hemoglobin 13.4 gm/dl (10.1-14.3); Lymphocytes % (Auto) 31.2 % (13.4-35.0); Mean Corpuscular HGB Conc 32 % (30-34); Mean Corpuscular Volume 78 fl (79-97); Monocytes # (Auto) 0.4 K/mm3 (0.0-0.8); Platelet Count 317 K/mm3 (140-440); Red Blood Count 5.36 M/mm3 (3.65-5.03)
[2019-11-10 21:55] LABS: INR 0.96 (0.87-1.13)
[2019-11-10 21:56] LABS: Partial Thromboplastin Time 30.4 Sec. (24.2-36.6)
--- NOTE | 2019-11-10 21:56 | Cat Scan Report ---
CT head without contrast INDICATION : Headache. TECHNIQUE: Axial imaging performed from the skull apex through the skull base without the use of con trast. All CT examinations performed at this facility utilize dose modulation, iterative reconstruct ion or weight-based dosing, when appropriate, to reduce radiation dose to as low as reasonably achiev able. COMPARISON: None FINDINGS: No acute intracranial hemorrhage or parenchymal abnormality. Ventricles are normal in si ze and appear symmetric. Soft tissues including the orbits appear normal. No acute osseous abnorm ality. Sinuses and mastoid air cells are clear. IMPRESSION: No acute abnormality. Signer Name: Tone Woodruff MD Signed: 11/10/2019 9:51 PM Workstation Name: [id number]
[2019-11-10 22:07] LABS: Alanine Aminotransferase 12 units/L (7-56); Albumin 4.5 g/dL (3.9-5); BUN/Creatinine Ratio 23; Blood Urea Nitrogen 18 mg/dL (7-17); Calcium 9.9 mg/dL (8.4-10.2); Hemolysis Index 12
[2019-11-10 22:12] LABS: Bilirubin,Direct < 0.2 mg/dL (0-0.2)
[2019-11-10] MEDS ORDERED: IBUPROFEN 600 MG TAB PO ONE (22:34)
[2019-11-10] MEDS ORDERED: LORazepam 1 MG TAB PO ONE (22:34)
--- NOTE | 2019-11-10 23:13 | XRay Report ---
CHEST 1 VIEW INDICATION / CLINICAL INFORMATION: CP sob. COMPARISON: None available. FINDINGS: SUPPORT DEVICES: None. HEART / MEDIASTINUM: No significant abnormality. LUNGS / PLEURA: No significant pulmonary or pleural abnormality. No pneumothorax. ADDITIONAL FINDINGS: No significant additional findings. IMPRESSION: 1. No significant change Signer Name: Jn Gomez MD Signed: 11/10/2019 11:08 PM Workstation Name: [id number]
[2019-11-10 23:14] LABS: Bacteria,Urine 2+ /HPF (Negative); Bilirubin,Urine NEG (Negative); Blood,Urine NEG (Negative); Color,Urine Colorless (Yellow); Protein,Urine <15 mg/dL mg/dL (Negative); Urobilinogen,Urine < 2.0 mg/dL (<2.0); WBC,Urine < 1.0 /HPF (0.0-6.0)
--- NOTE | 2019-11-11 00:27 | Emergency Department Report ---
ED General Adult HPI - General Chief complaint: Headache Stated complaint: HEADACHE, RIGHT SIDE FACIAL PAIN/SWELLING Time Seen by Provider: 11/10/19 21:03 Source: patient Mode of arrival: Ambulatory Limitations: No Limitations - History of Present Illness Initial comments: Patient is a 69-year-old F [place]an female with past medical history of coronary artery disease who has [address] hypertension borderline diabetes which is diet controlled and GERD who is presenting with right-sided headache. Patient states she was at home and started having some head pain. Patient was having a hard time describing exactly what the pain felt like. She states she has no pain currently however she feels like she had a headache. Patient also stated that she felt like chills in her head and also felt as though her head was swollen. At one point the patient stated it felt like someone poured water on her head. This occurred several hours prior to arrival. Patient was not complaining of any pain when she arrived however she then began complaining of chest discomfort which was a tight sensation in the chest. She states this is been off and on all week and associated with some shortness of breath. She denies it being exertional. She has an appointment to see her primary care physician sometime this week. When probed further patient states she sometimes does feel like it and anxious feeling. Patient states felt anxious with the chest tightness as well as the headache today. Severity scale (0 -10): 4 - Related Data Home Medications Medication Instructions Recorded Confirmed Last Taken Atorvastatin (Nf) [Lipitor (Nf)] 20 mg PO DAILY 12/03/13 07/20/17 07/19/17 Cholecalciferol (Vitamin D3) 1 each PO DAILY 12/03/13 07/17/17 02/04/15 08:00 [Vitamin D3] Multivitamin/Iron/Folic Acid 1 each PO DAILY 12/03/13 07/17/17 02/04/15 08:00 [Multi-Day Plus Iron Tablet] Flaxseed [Flaxseed Oil] 1,000 mg PO QDAY 01/29/15 07/17/17 02/04/15 09:00 Glucosam/Chondr/Collagn/Hyalur 1 each PO QDAY 01/29/15 07/17/17 02/04/15 09:00 [Glucosamine & Chondroitin Cap] Metoprolol Xl [Metoprolol 50 mg PO BID 01/29/15 07/20/17 07/20/17 SUCCINATE ER TAB] NIFEdipine [NIFEdipine ER] 60 mg PO QDAY 01/29/15 07/20/17 07/20/17 Vitamin B Complex Vit C No.4 150 mg PO QDAY 01/29/15 07/17/17 02/04/15 08:00 [Super B Complex] L. Acidophilus/Pectin, [place] 1 each PO DAILY 07/17/17 07/17/17 Unknown [Acidophilus Probiotic Capsule] Multivit-Min/FA/Lycopen/Lutein 1 each PO DAILY 07/17/17 07/17/17 Unknown [Centrum Silver Tablet] Prasugrel HCl [Effient] 10 mg PO DAILY 07/17/17 07/20/17 07/17/17 Propylene Glycol [Systane Balance] 1 drop OP DAILY 07/17/17 07/17/17 Unknown [place] Oil/[place]-3 Fatty Acids 1 each PO DAILY 07/17/17 07/17/17 Unknown [[place] Oil 1,000 mg Softgel] Previous Rx's Medication Instructions Recorded Last Taken Type Aspirin EC [Halfprin EC] 81 mg PO QDAY #30 tablet. 12/03/13 07/16/17 Rx oxyCODONE [roxiCODONE] 5 mg PO Q6HR PRN #30 tablet 07/20/17 Unknown Rx Hydrocortisone 2.5% [Hytone 2.5% 1 applicatio TP TID #2 tube 02/12/18 Unknown Rx CREAM] cephALEXin [Keflex] 500 mg PO Q8HR #28 cap 02/12/18 Unknown Rx ALPRAZolam [Xanax TAB] 0.25 mg PO BID PRN #6 tab 11/11/19 Unknown Rx Allergies Allergy/AdvReac Type Severity Reaction Status Date / Time adhesive AdvReac Severe STEWART SKIN Verified 12/03/13 07:01 ED Review of Systems ROS: Stated complaint: HEADACHE, RIGHT SIDE FACIAL PAIN/SWELLING Other details as noted in HPI Comment: All other systems reviewed and negative ED Past Medical Hx - Past Medical History Previous Medical History?: Yes Hx Hypertension: Yes (X 40 YRS) Hx Heart Attack/AMI: No Hx Diabetes: Yes ("BOARDERLINE" NO MEDS) Hx GERD: Yes (ON MEDS FOR AWHILE , RESOLVED NOW) Hx Renal Disease: No - Surgical History Past Surgical History?: Yes Hx Coronary Stent: Yes (X 3( )) - Social History Smoking Status: Never Smoker - Medications Home Medications: Home Medications Medication Instructions Recorded Confirmed Last Taken Type Aspirin EC [Halfprin EC] 81 mg PO QDAY #30 tablet. 12/03/13 07/20/17 07/16/17 Rx Atorvastatin (Nf) [Lipitor (Nf)] 20 mg PO DAILY 12/03/13 07/20/17 07/19/17 History Cholecalciferol (Vitamin D3) 1 each PO DAILY 12/03/13 07/17/17 02/04/15 08:00 History [Vitamin D3] Multivitamin/Iron/Folic Acid 1 each PO DAILY 12/03/13 07/17/17 02/04/15 08:00 History [Multi-Day Plus Iron Tablet] Flaxseed [Flaxseed Oil] 1,000 mg PO QDAY 01/29/15 07/17/17 02/04/15 09:00 History Glucosam/Chondr/Collagn/Hyalur 1 each PO QDAY 01/29/15 07/17/17 02/04/15 09:00 History [Glucosamine & Chondroitin Cap] Metoprolol Xl [Metoprolol 50 mg PO BID 01/29/15 07/20/17 07/20/17 History SUCCINATE ER TAB] NIFEdipine [NIFEdipine ER] 60 mg PO QDAY 01/29/15 07/20/17 07/20/17 History Vitamin B Complex Vit C No.4 150 mg PO QDAY 01/29/15 07/17/17 02/04/15 08:00 History [Super B Complex] L. Acidophilus/Pectin, [place] 1 each PO DAILY 07/17/17 07/17/17 Unknown History [Acidophilus Probiotic Capsule] Multivit-Min/FA/Lycopen/Lutein 1 each PO DAILY 07/17/17 07/17/17 Unknown History [Centrum Silver Tablet] Prasugrel HCl [Effient] 10 mg PO DAILY 07/17/17 07/20/17 07/17/17 History Propylene Glycol [Systane Balance] 1 drop OP DAILY 07/17/17 07/17/17 Unknown History [place] Oil/[place]-3 Fatty Acids 1 each PO DAILY 07/17/17 07/17/17 Unknown History [[place] Oil 1,000 mg Softgel] oxyCODONE [roxiCODONE] 5 mg PO Q6HR PRN #30 tablet 07/20/17 Unknown Rx Hydrocortisone 2.5% [Hytone 2.5% 1 applicatio TP TID #2 tube 02/12/18 Unknown Rx CREAM] cephALEXin [Keflex] 500 mg PO Q8HR #28 cap 02/12/18 Unknown Rx ALPRAZolam [Xanax TAB] 0.25 mg PO BID PRN #6 tab 11/11/19 Unknown Rx ED Physical Exam - General Limitations: No Limitations General appearance: alert, in no apparent distress, anxious - Head Head exam: Present: atraumatic, normocephalic - Eye Eye exam: Present: normal appearance, PERRL, EOMI - ENT ENT exam: Present: normal orophraynx, mucous membranes moist - Neck Neck exam: Present: normal inspection - Respiratory Respiratory exam: Present: normal lung sounds bilaterally. Absent: respiratory distress, wheezes, rales, rhonchi, chest wall tenderness - Cardiovascular Cardiovascular Exam: Present: regular rate, normal rhythm, normal heart sounds. Absent: systolic murmur, diastolic murmur, rubs, gallop - GI/Abdominal GI/Abdominal exam: Present: soft, normal bowel sounds. Absent: distended, tenderness, guarding, rebound - Extremities Exam Extremities exam: Present: normal inspection - Back Exam Back exam: Present: normal inspection - Neurological Exam Neurological exam: Present: alert, oriented X3 - Psychiatric Psychiatric exam: Present: normal affect, normal mood - Skin Skin exam: Present: warm, dry, intact, normal color. Absent: rash ED Course Vital Signs 11/10/19 11/10/19 20:57 23:06 Temperature 98.1 F 97.8 F Pulse Rate 99 H 77 Respiratory 18 18 Rate Blood Pressure 156/82 Blood Pressure 129/64 [Right] O2 Sat by Pulse 99 100 Oximetry ED Medical Decision Making - Lab Data Result diagrams: 11/10/19 21:20 11/10/19 21:20 Lab Results 11/10/19 11/10/19 11/10/19 Range/Units 21:20 21:20 21:20 WBC 6.5 (4.5-11.0) K/mm3 RBC 5.36 H (3.65-5.03) M/mm3 Hgb 13.4 (10.1-14.3) gm/dl Hct 41.7 (30.3-42.9) % MCV 78 L (79-97) fl MCH 25 L (28-32) pg MCHC 32 (30-34) % RDW 16.0 H (13.2-15.2) % Plt Count 317 (140-440) K/mm3 Lymph % (Auto) 31.2 (13.4-35.0) % [place] % (Auto) 6.0 (0.0-7.3) % Eos % (Auto) 1.8 (0.0-4.3) % Baso % (Auto) 1.4 (0.0-1.8) % Lymph # 2.0 (1.2-5.4) K/mm3 [place] # 0.4 (0.0-0.8) K/mm3 Eos # 0.1 (0.0-0.4) K/mm3 Baso # 0.1 (0.0-0.1) K/mm3 Seg Neutrophils % 59.6 (40.0-70.0) % Seg Neutrophils # 3.9 (1.8-7.7) K/mm3 PT 12.9 (12.2-14.9) Sec. INR 0.96 (0.87-1.13) APTT 30.4 (24.2-36.6) Sec. Sodium 140 (137-145) mmol/L Potassium 3.8 (3.6-5.0) mmol/L Chloride 100.0 (98-107) mmol/L Carbon Dioxide 22 (22-30) mmol/L Anion Gap 22 mmol/L BUN 18 H (7-17) mg/dL Creatinine 0.8 (0.7-1.2) mg/dL Estimated GFR > 60 ml/min BUN/Creatinine Ratio 23 % Glucose 131 H (65-100) mg/dL Calcium 9.9 (8.4-10.2) mg/dL Total Bilirubin 0.40 (0.1-1.2) mg/dL Direct Bilirubin < 0.2 (0-0.2) mg/dL Indirect Bilirubin 0.2 mg/dL AST 19 (5-40) units/L ALT 12 (7-56) units/L Alkaline Phosphatase 113 (35-129) units/L Troponin T (0.00-0.029) ng/mL Total Protein 7.8 (6.3-8.2) g/dL Albumin 4.5 (3.9-5) g/dL Albumin/Globulin Ratio 1.4 % Urine Color (Yellow) Urine Turbidity (Clear) Urine pH (5.0-7.0) Ur Specific [place] (1.003-1.030) Urine Protein (Negative) mg/dL Urine Glucose (UA) (Negative) mg/dL Urine Ketones (Negative) mg/dL Urine Blood (Negative) Urine Nitrite (Negative) Urine Bilirubin (Negative) Urine Urobilinogen (<2.0) mg/dL Ur Leukocyte Esterase (Negative) Urine WBC (Auto) (0.0-6.0) /HPF Urine RBC (Auto) (0.0-6.0) /HPF Urine Bacteria (Auto) (Negative) /HPF 11/10/19 11/10/19 Range/Units 22:48 22:53 WBC (4.5-11.0) K/mm3 RBC (3.65-5.03) M/mm3 Hgb (10.1-14.3) gm/dl Hct (30.3-42.9) % MCV (79-97) fl MCH (28-32) pg MCHC (30-34) % RDW (13.2-15.2) % Plt Count (140-440) K/mm3 Lymph % (Auto) (13.4-35.0) % [place] % (Auto) (0.0-7.3) % Eos % (Auto) (0.0-4.3) % Baso % (Auto) (0.0-1.8) % Lymph # (1.2-5.4) K/mm3 [place] # (0.0-0.8) K/mm3 Eos # (0.0-0.4) K/mm3 Baso # (0.0-0.1) K/mm3 Seg Neutrophils % (40.0-70.0) % Seg Neutrophils # (1.8-7.7) K/mm3 PT (12.2-14.9) Sec. INR (0.87-1.13) APTT (24.2-36.6) Sec. Sodium (137-145) mmol/L Potassium (3.6-5.0) mmol/L Chloride (98-107) mmol/L Carbon Dioxide (22-30) mmol/L Anion Gap mmol/L BUN (7-17) mg/dL Creatinine (0.7-1.2) mg/dL Estimated GFR ml/min BUN/Creatinine Ratio % Glucose (65-100) mg/dL Calcium (8.4-10.2) mg/dL Total Bilirubin (0.1-1.2) mg/dL Direct Bilirubin (0-0.2) mg/dL Indirect Bilirubin mg/dL AST (5-40) units/L ALT (7-56) units/L Alkaline Phosphatase (35-129) units/L Troponin T < 0.010 (0.00-0.029) ng/mL Total Protein (6.3-8.2) g/dL Albumin (3.9-5) g/dL Albumin/Globulin Ratio % Urine Color Colorless (Yellow) Urine Turbidity Clear (Clear) Urine pH 7.0 (5.0-7.0) Ur Specific [place] 1.008 (1.003-1.030) Urine Protein <15 mg/dl (Negative) mg/dL Urine Glucose (UA) Neg (Negative) mg/dL Urine Ketones Neg (Negative) mg/dL Urine Blood Neg (Negative) Urine Nitrite Neg (Negative) Urine Bilirubin Neg (Negative) Urine Urobilinogen < 2.0 (<2.0) mg/dL Ur Leukocyte Esterase Neg (Negative) Urine WBC (Auto) < 1.0 (0.0-6.0) /HPF Urine RBC (Auto) 1.0 (0.0-6.0) /HPF Urine Bacteria (Auto) 2+ (Negative) /HPF - EKG Data -: EKG Interpreted by Nm EKG shows normal: sinus rhythm, axis, intervals, QRS complexes, ST-T waves Rate: normal - EKG Data Interpretation: normal EKG - Radiology Data [facility] [address] [place] [address] XRay Report Signed Patient: TRINITY LIMA MR#: [id number] : 1950 Acct:[id number] Age/Sex: 69 / F ADM Date: 11/10/19 Loc: ED Attending Dr: Ordering Physician: HIRAM GAY MD Date of Service: 11/10/19 Procedure(s): XR chest 1V ap Accession Number(s): [id number] cc: HIRAM GAY MD Fluoro Time In Minutes: CHEST 1 VIEW INDICATION / CLINICAL INFORMATION: CP sob. COMPARISON: None available. FINDINGS: SUPPORT DEVICES: None. HEART / MEDIASTINUM: No significant abnormality. LUNGS / PLEURA: No significant pulmonary or pleural abnormality. No pneumothorax. ADDITIONAL FINDINGS: No significant additional findings. IMPRESSION: 1. No significant change Signer Name: Jn Gomez MD Signed: 11/10/2019 11:08 PM Workstation Name: [id number] CT head without contrast INDICATION : Headache. TECHNIQUE: Axial imaging performed from the skull apex through the skull base without the use of contrast. All CT examinations performed at this facility utilize dose modulation, iterative reconstruction or weight-based dosing, when appropriate, to reduce radiation dose to as low as reasonably achievable. COMPARISON: None FINDINGS: No acute intracranial hemorrhage or parenchymal abnormality. Ventricles are normal in size and appear symmetric. Soft tissues including the orbits appear normal. No acute osseous abnormality. Sinuses and mastoid air cells are clear. IMPRESSION: No acute abnormality. Signer Name: Tone Woodruff MD Signed: 11/10/2019 9:51 PM Workstation Name: [id number] - Medical Decision Making Patient is 69-year-old F [place]an female who presented with a right-sided headache prior to arrival. Patient has no neurological deficits. Blood pressure was slightly elevated on arrival. CT head was done to rule out intracranial hemorrhage. CT head was negative. Patient also has complaints of chest discomfort. Patient is at the time that the troponin was ordered been here 2 hours. Troponin was negative ruling out acute UT. EKG is within normal limits. Patient states she also has been having some discomfort off and on all week and again with the negative troponin makes acute coronary syndrome very unlikely. Patient likely does have some anxiety component to her complaints. Patient was given Ativan and states that she feels much improved. Patient will be discharged home to follow-up with her primary care physician. Critical care attestation.: If time is entered above; I have spent that time in minutes in the direct care of this critically ill patient, excluding procedure time. ED Disposition Clinical Impression: Acute headache, Atypical chest pain, Anxiety reaction Disposition: - TO HOME OR SELFCARE Is pt being admited?: No Does the pt Need Aspirin: No Condition: Stable Instructions: Chest Pain (ED), Anxiety (ED), Tension Headache (ED) Referrals: PRIMARY CARE, [Primary Care Provider] - 3-5 Days Time of Disposition: 00:28
[2019-11-11 00:41] VITALS: BP 125/61
== END 2019-11-11 00:41 | disposition home or self-care (01) ==
LOC: ED 20:42
DX: F41.1 Generalized anxiety disorder (principal); R07.89 Other chest pain; R51 Headache; K21.9 Gastro-esophageal reflux disease without esophagitis; I10 Essential (primary) hypertension; E11.9 Type 2 diabetes mellitus without complications; Z95.5 Presence of coronary angioplasty implant and graft; Z91.048 Other nonmedicinal substance allergy status; Z79.899 Other long term (current) drug therapy
CPT/HCPCS: 36415; 70450; 71045; 80048; 80076; 81001; 84484; 85025; 85610; 85730; 93005; 93010

== ENCOUNTER 2020-05-11 07:36 | Outpatient (CLI) | payer MEDICARE, OTHER ==
--- NOTE | 2020-05-11 10:11 | Mammography Report ---
DIGITAL SCREENING MAMMOGRAM WITH CAD, 05/11/2020 INDICATION: Routine screening mammography. TECHNIQUE: Digital bilateral 2D mammography was obtained in the craniocaudal and mediolateral obliq ue projections. This examination was interpreted with the benefit of Computer-Aided Detection analysi s. COMPARISON: 05/09/2019, 05/01/2018 FINDINGS: Breast Density: There are scattered areas of fibroglandular density. There is no evidence of dominant mass, suspicious calcifications or architectural distortion in eithe r breast. IMPRESSION: Follow up recommendation: Routine yearly BI-RADS Category 1: Negative. A "normal" or negative report should not discourage follow up or biopsy of a clinically significant f inding. A written summary of these findings will be mailed to the patient. The patient will be entered into a mammography reporting system which will generate a reminder letter for the patient's next appointmen t at the appropriate interval. The [employer] recommends yearly mammograms starting at age 40 and continuing as l arsenio as a woman is in good health. Breast MRI is recommended for women with an approximate 20-25% or greater lifetime risk of breast cancer, including women with a strong family history of breast or ova lolis cancer or who have been treated for Hodgkin's disease. Signer Name: Jamey Mendez MD Signed: 05/11/2020 10:07 AM Workstation Name: [id number]
== END 2020-05-11 07:37 | disposition home or self-care (01) ==
LOC: MAMMO 07:36
PROVIDERS: ATTEND Family Medicine
DX: Z12.31 Encounter for screening mammogram for malignant neoplasm of breast (principal); N64.89 Other specified disorders of breast
CPT/HCPCS: 77067

== ENCOUNTER 2021-05-07 06:39 | Day surgery (SDC) | payer MEDICARE, OTHER ==
[2021-05-07 07:40] LABS: Basophils % (Auto) 0.6 % (0.0-1.8); Eosinophils # (Auto) 0.1 K/mm3 (0.0-0.4); Eosinophils % (Auto) 2.2 % (0.0-4.3); Hematocrit 38.1 % (30.3-42.9); Hemoglobin 12.8 gm/dl (10.1-14.3); Lymphocytes # (Auto) 1.6 K/mm3 (1.2-5.4); Lymphocytes % (Auto) 27.7 % (13.4-35.0); Mean Corpuscular HGB Conc 34 % (30-34); Mean Corpuscular Volume 78 fl (79-97); Monocytes # (Auto) 0.4 K/mm3 (0.0-0.8); Monocytes % (Auto) 6.3 % (0.0-7.3); Platelet Count 289 K/mm3 (140-440); Red Blood Count 4.89 M/mm3 (3.65-5.03); Red Cell Distribution Width 15.7 % (13.2-15.2)
[2021-05-07 07:50] LABS: INR 0.97 (0.87-1.13)
[2021-05-07 07:52] LABS: BUN/Creatinine Ratio 19; Blood Urea Nitrogen 13 mg/dL (7-17); Calcium 9.8 mg/dL (8.4-10.2); Hemolysis Index 0
[2021-05-07] MEDS ORDERED: SODIUM CHLORIDE 0.9% 500 ML 500 ML IV SCH (08:00)
[2021-05-07] MEDS ORDERED: HEPARIN/NS 5000 UNIT/500ML 1,000 ML IR ONE (08:19)
[2021-05-07] MEDS ORDERED: HEPARIN 10,000 UNITS/10 ML VIAL ONE (08:19)
[2021-05-07] MEDS ORDERED: LIDOCAINE (2%) 20 MG/1 ML VIAL 20 ML MDV INFILTRATI ONE (08:20)
[2021-05-07] MEDS ORDERED: NITROGLYCERIN SYRINGE 0 ML ONE (08:20)
[2021-05-07] MEDS ORDERED: VERAPAMIL 5 MG/2 ML INJ ONE (08:20)
[2021-05-07] MEDS: fentaNYL 100 MCG/2 ML INJ ONE ×2 (09:29→09:36)
[2021-05-07] MEDS: MIDAZOLAM 2 MG/2 ML INJ ONE ×2 (09:29→09:35)
--- NOTE | 2021-05-07 10:30 | Electrocardiograph Report ---
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
[2021-05-07 13:44] VITALS: BP 137/60
--- NOTE | 2021-05-08 15:19 | Cardiac Catherization Report ---
DATE OF SERVICE: 05/07/2021 HISTORY: The patient is a 70-year-old female with coronary artery disease who has continued to experience angina, on aggressive medical therapy. Coronary angiography was recommended. PROCEDURE: Left heart catheterization, ventriculography, and coronary angiography via the right femoral artery using 5-Italian Coty catheters and a pigtail catheter. COMPLICATIONS: None. TISSUE SAMPLE: None. SEDATION: Intravenous Versed and fentanyl. ESTIMATED BLOOD LOSS: 10-20 mL PREPROCEDURE DIAGNOSIS: Angina. POSTPROCEDURE DIAGNOSIS: Double vessel coronary artery. SEDATION AND PROCEDURE START TIME: 9:29 a.m. PROCEDURE END TIME: 9:56 a.m. SEDATION AND PROCEDURE TIME: 27 minutes. HEMODYNAMICS: Central aortic pressure 168/87. Left ventricular pressure 168/29. ANGIOGRAPHIC RESULTS: LEFT VENTRICLE: Left ventriculogram reveals a normal sized left ventricle with normal systolic function. The ejection fraction is 60-65%. RIGHT CORONARY ARTERY: This vessel is the dominant vessel and it is diffusely calcified irregularly. The RV marginal branch contains a proximal 90% stenosis and this is a very small caliber vessel. The distal right coronary artery contains a 50% stenosis just before the bifurcation. LEFT CORONARY ARTERY: This vessel contains mild calcification and is diffusely irregular. The left main is remarkable for an ostial 10-20% stenosis. The LAD system is diffusely irregular, in the mid portion contains a 60% stenosis just past the takeoff of the second diagonal branch. The circumflex vessel contains a 99% stenosis proximally. Prior to the lesion, the vessel is diffusely narrowed by approximately 60%. Distally, the vessel is diffusely irregular. FINAL IMPRESSION: Coronary artery disease with chronic angina, on aggressive medical therapy. There is a 99% stenosis in the proximal circumflex to explain her symptoms. There was a moderate lesion in the mid LAD. Left ventricular function is normal. PLAN: In addition to medical therapy and CAD risk factor modification, the option of bypass surgery versus complex PCI will be discussed with the patient and the interventional team. TID: [id number] RECEIPT: [id number] DENISSE/JUSTIN
== END 2021-05-07 06:40 | disposition home or self-care (01) ==
LOC: CATHLABREC 06:39
PROVIDERS: ATTEND Internal Medicine
DX: R07.1 Chest pain on breathing (principal); I10 Essential (primary) hypertension; I25.10 Atherosclerotic heart disease of native coronary artery without angina pectoris; E78.00 Pure hypercholesterolemia, unspecified; G47.30 Sleep apnea, unspecified; K21.9 Gastro-esophageal reflux disease without esophagitis; Z79.899 Other long term (current) drug therapy; Z90.710 Acquired absence of both cervix and uterus; Z98.890 Other specified postprocedural states; Z79.82 Long term (current) use of aspirin; Z88.8 Allergy status to other drugs, medicaments and biological substances
CPT/HCPCS: 36415; 80048; 85025; 85610; 85730; 93005; 93458; 99156; 99157; J1644; J2250; J3010; J7040; Q9967